=== PATIENT | female | born 1985 | race Caucasian/White ===

== ENCOUNTER 2021-12-22 23:25 | Emergency (ER) | payer MEDICAID ==
[~2021-12-22] VITALS: Ht 157.5 cm; Wt 54.4 kg
[2021-12-22 23:39] VITALS: BP 100/52
[2021-12-23 00:39] LABS: CLARITY URINE CLEAR (CLEAR); COLOR URINE YELLOW (YELLOW); KETONES URINE 2+ (NEGATIVE); LEUKOCYTE ESTERASE URINE NEGATIVE (NEGATIVE); NITRITE URINE NEGATIVE (NEGATIVE); OCCULT BLOOD URINE NEGATIVE (NEGATIVE); PROTEIN URINE TRACE (NEGATIVE); SPECIFIC GRAVITY URINE 1.027 (1.005-1.030)
== END 2021-12-23 01:43 | disposition left against medical advice (07) ==
LOC: ER 23:25
DX: O26.892 Other specified pregnancy related conditions, second trimester (principal); R10.9 Unspecified abdominal pain; O09.32 Supervision of pregnancy with insufficient antenatal care, second trimester; Z3A.16 16 weeks gestation of pregnancy
CPT/HCPCS: 81003; 81025; 99283

== ENCOUNTER 2023-09-28 17:05 | Emergency (ER) | payer MEDICAID, OTHER ==
[~2023-09-28] VITALS: Ht 157.5 cm; Wt 63.5 kg
[2023-09-28 17:23] VITALS: O2SAT 100
[2023-09-28] MEDS: SODIUM CHLORIDE 0.9% 1,000 ML IV ONE (19:03)
[2023-09-28] MEDS: METOCLOPRAMIDE HCL 10MG/2ML VIAL IV ONE (19:10)
[2023-09-28] MEDS: KETOROLAC 15MG/ML VIAL IV ONE ×2 (19:10→23:13)
[2023-09-28] MEDS ORDERED: IBUP-2030 MT (22:23)
[2023-09-28 23:04] VITALS: TEMP 97
[2023-09-28 23:13] VITALS: BP 111/59; PULSE 66; RESP 18
== END 2023-09-28 23:42 | disposition home or self-care (01) ==
LOC: ER 17:05
DX: R51.9 Headache, unspecified (principal); R11.2 Nausea with vomiting, unspecified
CPT/HCPCS: 99285; 96374; 70450; 96361; 96375; 81025; 96376; J1885; J2765; J7030